=== PATIENT | male | born 1995 ===

== ENCOUNTER 2024-04-22 16:36 | Emergency (ER) | payer MEDICAID ==
[~2024-04-22] VITALS: Ht 188 cm; Wt 125.6 kg
[2024-04-22 16:49] VITALS: BP 132/83; PULSE 80; RESP 18; TEMP 98; O2SAT 96
== END 2024-04-22 20:06 | disposition left against medical advice (07) ==
LOC: ER 16:38 → EDSEX 16:38 → ER 20:06
DX: R07.9 Chest pain, unspecified (principal); R10.9 Unspecified abdominal pain; Z53.21 Procedure and treatment not carried out due to patient leaving prior to being seen by health care provider